=== PATIENT | female | born 1985 | race Two or more races ===

== ENCOUNTER 2024-07-25 20:45 | Emergency (ER) | payer OTHER ==
[~2024-07-25] VITALS: Ht 165.1 cm; Wt 72.6 kg
[2024-07-25] MEDS ORDERED: IRON325 MG PO (21:19)
[2024-07-25] MEDS ORDERED: ONDANSETRON HCL 2 MG/ML VIAL IV ONE (22:00)
[2024-07-25] MEDS ORDERED: KETOROLAC TROMETHAMINE 60 MG VIAL IM ONE (22:00)
[2024-07-25] MEDS ORDERED: 0.9 % SODIUM CHLORIDE 500 ML IV ONE (22:15)
[2024-07-25] MEDS ORDERED: KETOROLAC TROMETHAMINE 30 MG VIAL IV ONE (22:15)
[2024-07-25 23:15] LABS: URINE APPEARANCE Clear; URINE BILIRRUBIN Negative (NEGATIVE); URINE BLOOD Trace; URINE COLOR Yellow; URINE GLUCOSE Negative (NEGATIVE); URINE LEUKOCYTE Negative; URINE NITRATE Negative; URINE PROTEIN Trace (NEGATIVE); URINE UROBILINOGEN 0.2 E.U./dl
[2024-07-25 23:19] LABS: URINE BACTERIA 12.2 uL (0.0-1933); URINE EPITHELIAL CELLS 8.3 uL (0.0-38.8); URINE RBC 3.6 uL (0.0-20.8)
[2024-07-25 23:21] LABS: URINE KETONE >=160 (NEGATIVE)
[2024-07-25 23:25] LABS: HEMATOCRIT 41.5 % (36.0-45.00); HEMOGLOBIN 14.4 g/dL (12.0-15.00); MEAN CELL VOLUME 75.6 fL (80.00-100.00); MEAN CORPUSCULAR HEMOGLOBIN 26.2 pg (27.00-32.0); MEAN CORPUSCULAR HGB CONC 34.6 g/dl (32.0-36.0); PLATELET COUNT 301 K/uL (150-450); RED BLOOD COUNT 5.49 M/uL (4.00-6.00); RED CELL DISTRIBUTION WIDTH 15.7 % (11.5-14.5)
[2024-07-25 23:40] LABS: ALBUMIN 4.3 gm/dL (3.4-5.0); BILIRUBIN TOTAL 1.24 mg/dL (0.3-1.2); CALCIUM 8.9 mg/dL (8.5-10.1); CREATININE SERUM 0.58 mg/dL (0.55-1.02); GFR 117.63; GLOBULINA 3.5 G/DL (2.4-3.5); POTASSIUM 3.81 mEq/L (3.5-5.1); TOTAL PROTEIN 7.8 gm/dL (6.4-8.2)
[2024-07-26] MEDS ORDERED: ACETAMINOPHEN 500 MG GEL..CAP PO STA (02:08)
== END 2024-07-26 02:19 | disposition home or self-care (01) ==
LOC: ER 20:48
PROVIDERS: Preventive Medicine Public Health & General Preventive Medicine
DX: T50.905A Adverse effect of unspecified drugs, medicaments and biological substances, initial encounter (principal); Y92.89 Other specified places as the place of occurrence of the external cause; E06.3 Autoimmune thyroiditis; Z20.822 Contact with and (suspected) exposure to COVID-19